=== PATIENT | male | born 1975 | race African-American/Black ===

== ENCOUNTER 2016-08-25 13:56 | Emergency (ER) | payer OTHER ==
--- NOTE | 2016-08-25 14:04 | ER Document Report ---
ED Medical Screen (RME) - General Stated Complaint: ABSCESS ON RIGHT LEG Time seen by provider: 14:02 Mode of Arrival: Ambulatory Information source: Patient Notes: 41-year-old male presents to ED for abscess to the outer right thigh. Patient states has been there for a long time and he thought it was can go away. Last week it started getting more painful last week. States she has not had a history of MRSA. I have greeted and performed a rapid initial assessment of this patient. A comprehensive ED assessment and evaluation of the patient, analysis of test results and completion of medical decision making process will be conducted by an additional ED providers.
--- NOTE | 2016-08-25 16:18 | ER Document Report ---
HPI - HPI Patient complains to provider of: lesion right lateral upper thigh Onset: Other - month Onset/Duration: Gradual Quality of pain: No pain Pain Level: 2 Context: 41 yo male with lesion right lateral upper thigh for a month. Scaley top if removed only has red skin underneath. No pus. He tried it once, wants to know what it is. No hx skin cancer. Associated Symptoms: None Exacerbated by: Denies Relieved by: Denies Similar symptoms previously: No Recently seen / treated by doctor: No - ROS ROS below otherwise negative: Yes Systems Reviewed and Negative: Yes All other systems reviewed and negative - DERM Skin Color: Normal Past Medical History - General Information source: Patient - Social History Smoking Status: Never Smoker Chew tobacco use (# tins/day): No Frequency of alcohol use: None Drug Abuse: None Lives with: Family Family History: Reviewed & Not Pertinent Patient has suicidal ideation: No Patient has homicidal ideation: No - Medical History Medical History: Negative Renal/ Medical History: Denies: Hx Peritoneal Dialysis Past Surgical History: Reports: Hx Orthopedic Surgery - Back & right leg - Immunizations Hx Diphtheria, Pertussis, Tetanus Vaccination: Yes Vertical Provider Document - CONSTITUTIONAL Agree With Documented VS: Yes Exam Limitations: No Limitations General Appearance: No Apparent Distress - INFECTION CONTROL TRAVEL OUTSIDE OF THE [place] IN LAST 30 DAYS: No - HEENT HEENT: Normocephalic - NECK Neck: Supple - RESPIRATORY O2 Sat by Pulse Oximetry: 100 - MUSCULOSKELETAL/EXTREMETIES Musculoskeletal/Extremeties: ROSSY MONTELONGO - NEURO Level of Consciousness: Awake, Alert - DERM Integumentary: Warm, Dry Notes: right upper lateral thigh hyperkeratotic brown scaled thick 1 cm irregular edged round lesion. No bleeding or vascularity. I advised the pt that he needs to have this biopsied and will refer to dental treatment coordinator. Course - Vital Signs Vital signs: Temp Pulse Resp BP Pulse Ox 97.9 F 86 18 108/54 L 100 08/25/16 14:10 08/25/16 14:10 08/25/16 14:10 08/25/16 14:10 08/25/16 14:10 Discharge - Discharge Clinical Impression: scaling lesion right thigh Condition: Good Disposition: HOME, SELF-CARE Additional Instructions: call and schedule appointment with the dental treatment coordinator for next week Vaseline to keep the lesion moist, Band-Aid on top. Referrals: ALEXANDER BUCHANAN DO [ACTIVE STAFF] - 08/28/16
[2016-08-25 17:32] VITALS: BP 101/64
== END 2016-08-25 17:15 | disposition home or self-care (01) ==
LOC: ER 13:56
DX: L98.9 Disorder of the skin and subcutaneous tissue, unspecified (principal)
CPT/HCPCS: 99282

== ENCOUNTER 2020-07-14 20:46 | Emergency (ER) | payer OTHER ==
[2020-07-14 21:19] VITALS: BP 125/83
--- NOTE | 2020-07-14 21:43 | ER Document Report ---
ED Skin Rash/Insect Bite/Abscs - General Chief Complaint: Insect Bite Stated Complaint: INFECTED BUG BITE Time Seen by Provider: 07/14/20 21:39 TRAVEL OUTSIDE OF THE [place] IN LAST 30 DAYS: No - HPI Notes: 44-year-old male presents to ED for evaluation of possible insect bite to his left posterior flank for the last week. Patient reports that he noticed an area that has been swelling and irritated over the last week. Patient states he has not used any medication. Denies trauma or injury. Notes that he has not tried any [id number] medications. Denies any fevers or chills. Denies any trauma or injury. Denies any other complaints at this time. Patient reports he has not used any new soaps or detergents. - Related Data Allergies/Adverse Reactions: No Known Allergies Allergy (Verified 08/25/16 14:03) Past Medical History - Social History Smoking Status: Never Smoker Chew tobacco use (# tins/day): No Frequency of alcohol use: None Drug Abuse: None Family History: Reviewed & Not Pertinent Patient has homicidal ideation: No - Medical History Medical History: Negative Renal/ Medical History: Denies: Hx Peritoneal Dialysis Past Surgical History: Reports: Hx Orthopedic Surgery - Back & right leg - Immunizations Hx Diphtheria, Pertussis, Tetanus Vaccination: Yes Review of Systems - Review of Systems Notes: Constitutional: Negative for fever. HENT: Negative for sore throat. Eyes: Negative for visual changes. Cardiovascular: Negative for chest pain. Respiratory: Negative for shortness of breath. Gastrointestinal: Negative for abdominal pain, vomiting or diarrhea. Genitourinary: Negative for dysuria. Musculoskeletal: Negative for back pain. Skin: + for rash. Neurological: Negative for headaches, weakness or numbness. 10 point ROS negative except as marked above and in HPI. Physical Exam - Vital signs Vitals: Temp Pulse Resp BP Pulse Ox 97.6 F 80 20 125/83 96 07/14/20 21:19 07/14/20 21:19 07/14/20 21:19 07/14/20 21:19 07/14/20 21:19 General: No acute distress. Alert and oriented x3. Sitting comfortably in a stretcher. Skin: Intact without any jaundice, pallor, or erythema. Warm and dry. Centimeter area of erythema with sloughing of centralized skin consistent with that of burn. Neck: Supple with no lymphadenopathy. Full range of motion. Heart: Regular rate and rhythm. S1,S2. No murmurs, rubs, or gallops. Lungs: Clear to ausculation bilaterally. No wheezes, rhonchi, rales. Equal chest expansion. No retractions. Abdomen: Soft, nontender to palpation, nondistended. Positive bowel sounds in all 4 quadrants. No hepatosplenomegaly. No masses. No CVA tenderness bilaterally. Neuro: GCS 15. Moving all extremities without discomfort. Psych: Mood and affect appropriate. Course - Re-evaluation Re-evalutation: 07/14/20 22:06 44-year-old male presents to ED for evaluation of possible insect bite to the left lower back. On presentation, patient's presentation is consistent with that of burn more than insect bite. Patient adamantly denies having burned himself. I discussed with patient that I do not believe he needs oral antibiotics however would benefit from bacitracin versus Silvadene. I advised him to keep the area clean and dry. He is encouraged to follow-up with his primary care provider return for any new or worsening symptoms. Patient verbalizes his understanding of these indications and is in agreement with this plan of care. - Vital Signs Vital signs: Temp Pulse Resp BP Pulse Ox 97.6 F 80 20 125/83 96 07/14/20 21:19 07/14/20 21:19 07/14/20 21:19 07/14/20 21:19 07/14/20 21:19 - Laboratory Results Critical Laboratory Results Reviewed: No Critical Results - Radiology Results Critical Radiology Results Reviewed: No Critical Results Discharge - Discharge Clinical Impression: Skin abrasion Condition: Stable Disposition: HOME, SELF-CARE Instructions: Abrasions ([facility]) Prescriptions: Silver Sulfadiazine [Silvadene 1% Cream 25 gm] 1 applic TP DAILY #1 tube
== END 2020-07-14 21:50 | disposition home or self-care (01) ==
LOC: ER 20:46
DX: T14.8XXA Other injury of unspecified body region, initial encounter (principal); X58.XXXA Exposure to other specified factors, initial encounter; R21 Rash and other nonspecific skin eruption
CPT/HCPCS: 99282